=== PATIENT | female | born 1955 | race Caucasian/White ===

== ENCOUNTER 2016-05-28 21:06 | Emergency (ER) | payer BC ==
--- NOTE | 2016-06-23 21:26 | ER ---
ADMIT: 05/28/2016 RM/LOC: ER [facility] MR#: [id number] [facility] [address] [place] [id number] [address] [place] [address] Emergency Room Report SEX: F AGE: 60 : 1955 DATE: 05/28/2016 HISTORY OF PRESENT ILLNESS: A 60-year-old female comes to the emergency department with complaints of exertional chest pain, started 24 hours ago, has continued to worsen. The episodes last for about an hour. Describes tightness that is radiating up both arms. She is currently pain-free. PAST MEDICAL HISTORY: Hypertension. SOCIAL HISTORY: Does not smoke or drink. PHYSICAL EXAMINATION: GENERAL: Reveals a 60-year-old female, in no acute distress. LUNGS: Clear to auscultation. CARDIOVASCULAR: Regular rate and rhythm. ABDOMEN: Soft, nontender, positive bowel sounds. No masses, guarding, or rebound. EXTREMITIES: Without clubbing, cyanosis, or edema. Cardiac workup was initiated, the results were left ventricular hypertrophy on EKG, otherwise normal. Chest x-ray showed no acute changes. White count was 4.7, potassium 3.6, glucose 111. I talked to the patient, was going to admit her for chest pain. After speaking with the admission doctor, I went back and told the patient she was going to be admitted. She then stated there was no way she wanted to stay in the hospital and she wanted to go home. She states she can follow up with her doctor tomorrow, but would not stay. DIAGNOSIS: Chest pain. En Barbour MD/ allan JOB #: [id number] CC: Angus Wood MD, Attending Physician Waqar Mcclain MD, Family Physician
== END 2016-05-28 23:24 | disposition home or self-care (01) ==
LOC: ER 21:06
DX: R07.89 Other chest pain (principal); I10 Essential (primary) hypertension